=== PATIENT | male | born 1990 | race Caucasian/White ===

== ENCOUNTER 2020-02-01 11:21 | Emergency (ER) | payer MEDICAID, OTHER ==
[2020-02-01 12:53] VITALS: BP 152/93; PULSE 84
[2020-02-01] MEDS ORDERED: Diphtheria,Pertussis(Acell),Tetanus Vaccine 0.5 ML SDV IM ONE (13:30)
--- NOTE | 2020-02-01 13:31 | EDM.PDOC ---
ED HPI GENERAL MEDICAL PROBLEM - General Chief Complaint: Laceration Stated Complaint: CUT L MIDDLE FINGER Time Seen by Provider: 02/01/20 13:30 Source of Information: Reports: Patient - History of Present Illness INITIAL COMMENTS - FREE TEXT/NARRATIVE: Patient presents to [place] [facility] for evaluation of finger injury. Patient was changing a tire on a field tracker. Injury occurred around 11 am today. Finger was caught in the tire and patient attempted to pull the finger out resulting in a laceration and partial evulsion of the finger tip. Unknown last tetanus per patient. Left Finger-Middle Pain Score (Numeric/FACES): 5 - Related Data Allergies Allergy/AdvReac Type Severity Reaction Status Date / Time No Known Allergies Allergy Verified 02/01/20 12:55 Home Meds: Home Meds NK [No Known Home Meds] 02/01/20 [History] Past Medical History - Past Health History Medical/Surgical History: Denies Medical/Surgical History Psychiatric History: Reports: Depression Endocrine/Metabolic History: Reports: Obesity/BMI 30+ - Infectious Disease History Infectious Disease History: Reports: Chicken Pox - Past Surgical History HEENT Surgical History: Reports: Adenoidectomy, Tonsillectomy Male Surgical History: Reports: Vasectomy Social & Family History - Tobacco Use Smoking Status *Q: Never Smoker Second Hand Smoke Exposure: No - Caffeine Use Caffeine Use: Reports: Coffee - Alcohol Use Days Per Week of Alcohol Use: 0 - Recreational Drug Use Recreational Drug Use: No ED ROS GENERAL - Review of Systems Review Of Systems: Comprehensive ROS is negative, except as noted in HPI. ED EXAM, SKIN/RASH Exam: See Below Exam Limited By: No Limitations General Appearance: Alert, WD/WN, No Apparent Distress Throat/Mouth: No Airway Compromise Respiratory/Chest: No Respiratory Distress Cardiovascular: Normal Peripheral Pulses (left middle/long finger laceation involving nail and nail bed ) Location, Skin: Other (laceration left middle finger with nailbed injury and partial nail avulsion) ED SKIN PROCEDURES - Laceration/Wound Repair Left Distal Digit - 3rd (Middle) Appearance: Superficial, Subcutaneous, Moderately Contaminated Distal NVT: Neuro & Vascular Intact Anesthetic Type: Digital Local Anesthesia - Lidocaine (Xylocaine): 1% with EPI Local Anesthesia - Bupivicaine (Marcaine): 0.5% Plain (Poor anesthetic results with Lidocaine ) Local Anesthetic Volume: 4cc (repeat thecal block placed 2 cc lidocaine 1%) Skin Prep: Chlorhexidine (Hibiciens), Saline Exploration/Debridement/Repair: In a Bloodless Field, Moderate Debridement (Avulsed distal nail removed with nonviable tissue along cuticle ), Foreign Material Removed (grease and break dust) Closed with: Sutures Lac/Wound length In cm: 2.7 Suture Size: 5-0 Suture Type: Other (Vicryl due to nailbed repair ) Course - Vital Signs Last Recorded V/S: Last Vital Signs Temp 36.4 C 02/01/20 12:55 Pulse 84 02/01/20 12:55 Resp 16 02/01/20 12:55 BP 152/93 H 02/01/20 12:55 Pulse Ox 98 02/01/20 12:55 - Orders/Labs/Meds Orders: Active Orders 24 hr Category Date Time Status Vaccines to be Administered [RC] PER UNIT ROUTINE Care 02/01/20 13:30 Active Meds: Medications Discontinued Medications Generic Name Dose Route Start Last Admin Trade Name Freq PRN Reason Stop Dose Admin Bacitracin Confirm 02/01/20 13:34 02/01/20 14:21 Bacitracin Oint 1 Gm Administered 02/01/20 13:35 Not Given Dose 1 dose .ROUTE .STK-MED ONE Bacitracin 1 dose 02/01/20 13:43 02/01/20 13:44 Bacitracin Oint 1 Gm TOP 02/01/20 13:44 1 dose ONETIME ONE Administration Bupivacaine HCl 10 ml 02/01/20 14:25 02/01/20 14:33 Sensorcaine-Mpf 0.5% INJECT 02/01/20 14:26 10 ml ONETIME ONE Administration Diphtheria/Tetanus/Acell Pertussis 0.5 ml 02/01/20 13:30 02/01/20 13:41 Adacel IM 02/01/20 13:31 0.5 ml .ONCE ONE Administration Lidocaine HCl 5 ml 02/01/20 13:30 02/01/20 13:41 Xylocaine-Mpf 1% INJECT 02/01/20 13:31 5 ml ONETIME ONE Administration Lidocaine HCl 5 ml 02/01/20 14:09 02/01/20 14:21 Xylocaine-Mpf 1% INJECT 02/01/20 14:10 5 ml ONETIME ONE Administration Departure - Departure Time of Disposition: 14:59 Disposition: DC/Tfer to [facility] 02 Clinical Impression: Laceration of finger nail bed, Tetanus toxoid vaccination administered at current visit, Elevated blood pressure reading - Discharge Information Instructions: Laceration Care, Adult, Fingernail or Toenail Removal, Adult, Care After, Preventing Hypertension, Hypertension, Adult Referrals: PCP,None [Primary Care Provider] - Forms: ED Department Discharge Additional Instructions: 1. KEEP LACERATION DRY AND CLEAN X 48 HOURS 2. AFTER 48 hours CLEANSE WOUND DAILY AND APPLY TOPICAL ANTIBIOTIC OINTMENT. 3. FOLLOW WOUND CARE INFORMATION GIVEN. 4. FOLLOW UP IN CLINIC IN 7-10 DAYS FOR RECHECK AND POSSIBLE SUTURE REMOVAL. 5. Tylenol or Ibuprofen for pain and swelling. 6. Return for repeat evaluation if increase, changes, new or worsen symptoms. IF NO PCP Call Clinic of choice to schedule a follow-up appointment and to establish primary care provider and clinic. Clinic Phone numbers given for reference THE DISCHARGE INSTRUCTIONS ARE INTENDED A COMPLEMENT TO AND NOT A REPLACEMENT FOR THE VERBAL INSTRUCTIONS THAT I HAVE PROVIDED YOU TODAY. AFTER GOING OVER THE PLAN OF CARE TONIGHT AND PROVIDING YOU WITH THE VERBAL INSTRUCTIONS AT DISCHARGE YOU HAVE HAD THE OPPORTUNITY TO ASK FURTHER QUESTIONS AND TO CLARIFY UNCERTAINTIES. THANK YOU FOR ALLOWING US TO ASSIST WITH YOUR MEDICAL CONCERNS AND NEEDS. ELEVATED BLOOD PRESSURE Take your blood pressure and pulse 1-2 times at various times daily for the next two weeks. Take your readings to your primary care provider to discuss treatment options for elevated blood pressure Discharge Instructions Hypertension - High Blood Pressure During you visit to the Emergency Department, your blood pressure was higher than the recommended blood pressure. This may be related to stress, pain, medication or other temporary conditions. In these cases, your blood pressure may return to normal on its own. If you have a history of high blood pressure, you may need to have your provider adjust your medications. Sometimes, your high measurement here may indicate that you have developed high blood pressure that will stay high unless it is treated. As a general rule, high blood pressure causes problems over years rather than days, weeks, or months. So, while it is important to treat blood pressure, it is rarely important to treat blood pressure immediately. Occasionally we will begin a medication in the Emergency Department; more often we will recommend close follow-up for medications with a primary doctor/clinic. Please follow-up as instructed by your provider today. Return to the clinic or Local Emergency Department if you start to have: A severe headache. Chest pain. Shortness of breath. Weakness or numbness that affects one part of the body. Confusion. Vision changes. Significant swelling of legs and/or eyes. A reaction to any medication started in the Emergency Department. What can I do to help myself? Avoid alcohol. Take any blood pressure medicine that you are prescribed. Get a good nights sleep. Lower your salt intake. Exercise. Lose weight. Manage stress. See your doctor regularly If blood pressure medication was started today: The medicine may not have an immediate effect. The body and brain determine what blood pressure you have. The medicines job is to retrain the bodys thermostat to a lower blood pressure. You will need to follow up with your provider to see how this medicine is working for you. If you were given a prescription for medicine here today, be sure toread all of the information (including the package insert) that comes with your prescription. This will include important information about the medicine, its side effects, and any warnings that you need to know about. The pharmacist who fills the prescription can provide more information and answer questions you may have about the medicine. If you have questions or concerns that the pharmacist cannot address, please call or return to the Emergency Department. Remember that you can always come back to the clinic or go to Local Emergency Department if you are not able to see your regular provider in the amount of time listed above, if you get any new symptoms, or if there is anything that worries you. Discharge Instructions Laceration (Cut) You were seen today for a laceration (cut). Your provider examined your laceration for any problems such a buried foreign body (like glass, a splinter, or gravel), or injury to blood vessels, tendons, and nerves. Your provider may have also rinsed and/or scrubbed your laceration to help prevent an infection. It may not be possible to find all problems with your laceration on the first visit; occasionally foreign bodies or a tendon injury can go undetected. Your laceration may have been closed in one of several ways: No closure: many wounds will heal just fine without closure. Stitches: regular stitches that require removal. Jody: skin jody are often used in the scalp/head. Wound adhesive (glue): skin glue can be used for certain lacerations and doesnt require removal. Wound strips (aka Butterfly bandages or steri-strips): these are bandages that help to close a wound. Absorbable stitches: dissolving stitches that go away on their own and usually dont require removal. A small percentage of wounds will develop an infection regardless of how well the wound is cared for. Antibiotics are generally not indicated to prevent an infection so are only given for a small number of high-risk wounds. Some lacerations are too high risk to close, and are left open to heal because closure can increase the likelihood that an infection will develop. Remember that all lacerations, no matter how expertly repaired, will cause scarring. We consider many factors, techniques, and materials, in our efforts to provide the best possible cosmetic outcome. Generally, every Emergency Department visit should have a follow-up clinic visit with either a primary or a specialty clinic/provider. Please follow-up as instructed by your emergency provider today. Return to the Emergency Department right away if: You have more redness, swelling, pain, drainage (pus), a bad smell, or red streaking from your laceration as these symptoms could indicate an infection. You have a fever of 100.4F or more. You have bleeding that you cannot stop at home. If your cut starts to bleed, hold pressure on the bleeding area with a clean cloth or put pressure over the bandage. If the bleeding does not stop after using constant pressure for 30 minutes, you should return to the Emergency Department for further treatment. An area past the laceration is cool, pale, or blue compared with the other side, or has a slower return of color when squeezed. Your dressing seems too tight or starts to get uncomfortable or painful. For children, signs of a problem might be irritability or restlessness. You have loss of normal function or use of an area, such as being unable to straighten or bend a finger normally. You have a numb area past the laceration. Return to the Emergency Department or see your regular provider if: The laceration starts to come open. You have something coming out of the cut or a feeling that there is something in the laceration. Your wound will not heal, or keeps breaking open. There can always be glass, wood, dirt or other things in any wound. They will not always show up, even on x-rays. If a wound does not heal, this may be why, and it is important to follow-up with your regular provider. Home Care: Take your dressing off in 12-24 hours, or as instructed by your provider, to check your laceration. Remove the dressing sooner if it seems too tight or painful, or if it is getting numb, tingly, or pale past the dressing. Gently wash your laceration 1-2 times daily with clean water and mild soap. It is okay to shower or run clean water over the laceration, but do not let the laceration soak in water (no swimming). If your laceration was closed with wound adhesive or strips: pat it dry and leave it open to the air. For all other repairs: after you wash your laceration, or at least 2 times a day, apply antibiotic ointment (such as Neosporin or Bacitracin) to the laceration, then cover it with a Band-Aid or gauze. Keep the laceration clean. Wear gloves or other protective clothing if you are around dirt. Follow-up for removal: If your wound was closed with jody or regular stitches, they need to be removed according to the instructions and timeline specified by your provider today. If your wound was closed with absorbable (dissolving) sutures, they should fall out, dissolve, or not be visible in about one week. If they are still visible, then they should be removed according to the instructions and timeline specified by your provider today. Scars: To help minimize scarring: Wear sunscreen over the healed laceration when out in the sun. Massage the area regularly once healed. You may apply Vitamin E to the healed wound. Wait. Scars improve in appearance over months and years. If you were given a prescription for medicine here today, be sure toread all of the information (including the package insert) that comes with your prescription. This will include important information about the medicine, its side effects, and any warnings that you need to know about. The pharmacist who fills the prescription can provide more information and answer questions you may have about the medicine. If you have questions or concerns that the pharmacist cannot address, please call or return to the Emergency Department. Remember that you can always come back to the Emergency Department if you are not able to see your regular provider in the amount of time listed above, if you get any new symptoms, or if there is anything that worries you. TETANUS (MOISESJAW) IMMUNIZATION GENERAL INFORMATION: Tetanus is an acute infectious disease which produces painful tonic spasms of some voluntary muscles. Often the first noticeable sign is stiffness of the jaw (lockjaw). Tetanus shots are indicated for active immunization/protection of children over six years of age and adults. The basic immunization course consists of two doses/injections given at intervals of 4-6 weeks, and followed by a third dose/injection 6-12 months later. The third dose must be given to consider immunization/terminal carman protection completed. routine booster dose/injection should be given in ten year intervals throughout life to maintain immunity. GOAL:To prevent tetanus from occurring. TREATMENT/SPECIAL INSTRUCTIONS: 1. r clean minor wounds, a tetanus booster shot is necessary if ten years have elapsed since your last booster. For all other wounds, a booster shot is needed if it has been five or more years since your last booster. 2. A small area of redness and firmness at the site of the Injection (shot) is common, and may last for a few days. 3. If your arm feels stiff and sore, exercise it. You may also apply cold to the injection area for relief of minor discomfort. 4. It is important to keep a record of the date on which you received your Tetanus booster. This is a card for you to record the date of your booster. Cut it out and keep it in your billfold for reference. TETANUS IMMUNIZATION HISTORY DATE DATE DATE [facility] [place], [place] [id number] Sepsis Event Note (ED) - Evaluation Sepsis Screening Result: No Definite Risk - Focused Exam Vital Signs: Vital Signs Temp Pulse Resp BP Pulse Ox 02/01/20 12:55 36.4 C 84 16 152/93 H 98 02/01/20 12:50 36.4 C 84 16 152/93 H 98 - My Orders Last 24 Hours: My Active Orders 02/01/20 13:30 Vaccines to be Administered [RC] PER UNIT ROUTINE - Assessment/Plan Last 24 Hours: My Active Orders 02/01/20 13:30 Vaccines to be Administered [RC] PER UNIT ROUTINE
[2020-02-01] MEDS ORDERED: Bacitracin Oint 1 GM U/D Packet TOP ONE (13:43)
[2020-02-01] MEDS: Bacitracin Oint 1 GM U/D Packet ONE ×2 (13:43→14:21)
[2020-02-01] MEDS ORDERED: Bupivacaine 0.5% 10 ML SDV INJECT ONE (14:25)
== END 2020-02-01 15:18 | disposition home or self-care (01) ==
LOC: JP.ED 11:21
DX: S61.223A Laceration with foreign body of left middle finger without damage to nail, initial encounter (principal); Z23 Encounter for immunization; E66.9 Obesity, unspecified; Z68.45 Body mass index [BMI] 70 or greater, adult; W23.0XXA Caught, crushed, jammed, or pinched between moving objects, initial encounter
CPT/HCPCS: 11760; 90471; 90715; 99284; J2001; J3490